=== PATIENT | female | born 1945 | race Caucasian/White ===

== ENCOUNTER 2019-07-08 07:38 | Day surgery (SDC) | payer MEDICARE ==
[2019-07-08] MEDS ORDERED: Sodium Chloride 0.9% 1,000 ML IV SCH (08:15)
[2019-07-08] MEDS ORDERED: fentaNYL 100 MCG/2 ML SDV ONE (08:47)
[2019-07-08] MEDS ORDERED: Midazolam 1 MG/ML 2 ML SDV ONE (08:47)
[2019-07-08] MEDS ORDERED: Propofol 200 MG/20 ML SDV ONE ×2 (08:47→09:58)
[2019-07-08 11:15] VITALS: BP 107/73; PULSE 51
--- NOTE | 2019-07-08 12:22 | PROC ---
DATE OF PROCEDURE: 07/08/2019 SURGEON: David Manuel MD PREPROCEDURE DIAGNOSIS: Screening colonoscopy. POSTPROCEDURE DIAGNOSIS: Screening colonoscopy, normal colon. INDICATION: Risks and goals of the procedure including potential complications, perforation, uncontrolled bleeding were reviewed with the patient, and she gave informed consent to proceed. She was brought back to the endoscopy room. Sedation and monitoring provided by the Anesthesia Service. She was placed in a left lateral decubitus position. Time-out was held to confirm right patient, right side, right procedure. After adequate sedation was achieved, digital rectal exam was performed which was unremarkable. Following this, the flexible colonoscope was placed and advanced out through the colon to the cecum. The scope was slowly withdrawn through the length of the colon out of the cecum through the ascending, transverse colon, down the descending colon, and through the sigmoid colon. The scope was then retroflexed in the rectum, straightened, and removed. There were no significant mucosal polyps, masses, or lesions noted, and the procedure was otherwise completed without complication. David Manuel MD /[id number]
== END 2019-07-08 11:16 | disposition home or self-care (01) ==
LOC: JP.SDS 07:38
PROVIDERS: ATTEND Hospitalist
DX: Z12.11 Encounter for screening for malignant neoplasm of colon (principal); E78.5 Hyperlipidemia, unspecified
CPT/HCPCS: G0121; J2250; J2704; J3010; J7030

== ENCOUNTER 2019-11-26 14:18 | Inpatient (IN) | payer MEDICARE ==
--- NOTE | 2019-11-26 15:08 | EDM.PDOC ---
ED HPI GENERAL MEDICAL PROBLEM - General Chief Complaint: Lower Extremity Injury/Pain Stated Complaint: Fall. BL knees and R foot/ankle pain Time Seen by Provider: 11/26/19 15:00 Source of Information: Reports: Patient, Family History Limitations: Reports: No Limitations - History of Present Illness INITIAL COMMENTS - FREE TEXT/NARRATIVE: CC: Fell at home getting the mail. Pt arrives private vehicle to ER after unwitnessed fall about 1200 pm. Pt fell to both knees and twisted R foot/ankle. No LOC. Pt states "did not bear weight and slid down to ground near garage to wait for to return from run. slid pt to vehicle and drove to ER. Onset: Today Onset Date: 11/26/19 Onset Time: 12:00 Duration: Hour(s):, Constant Location: Reports: Lower Extremity, Left, Lower Extremity, Right, Other (BL knees and R foot/ankle) Quality: Reports: Ache, Pressure Severity: Moderate Improves with: Reports: Immobilization, Other (Has not taken anything ) Worsens with: Reports: Movement Context: Reports: Other (fall at home) Associated Symptoms: Reports: Weakness (BL knees and L foot/ankle) Right Knee Pain Score (Numeric/FACES): 10 - Related Data Allergies Allergy/AdvReac Type Severity Reaction Status Date / Time No Known Allergies Allergy Verified 11/26/19 14:43 Home Meds: Home Meds Calcium Carbonate [Calcium] 500 tab PO TID 05/05/15 [History] Multivitamin [Multivitamins] 1 tab PO DAILY 05/05/15 [History] Aspirin [Low Dose Aspirin EC] 81 mg PO DAILY 05/17/18 [History] atorvaSTATin Calcium [Lipitor] 20 mg PO BEDTIME 05/17/18 [History] Past Medical History HEENT History: Reports: Cataract, Impaired Vision Cardiovascular History: Reports: High Cholesterol 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: Musculoskeletal History: Reports: Fracture Other Musculoskeletal History: hx of bilateral hip replacement, left foot drop with complication of surgery Neurological History: Reports: CVA Endocrine/Metabolic History: Reports: Obesity/BMI 30+ - Infectious Disease History Infectious Disease History: Reports: Chicken Pox, Measles, Mumps - Past Surgical History HEENT Surgical History: Reports: Cataract Surgery Cardiovascular Surgical History: Reports: None Musculoskeletal Surgical History: Reports: Hip Replacement, Other (See Below) Other Musculoskeletal Surgeries/Procedures:: surg on left wrist with plate Social & Family History - Tobacco Use Smoking Status *Q: Never Smoker Second Hand Smoke Exposure: No - Caffeine Use Caffeine Use: Reports: Coffee - Recreational Drug Use Recreational Drug Use: No - Living Situation & Occupation Living situation: Reports: , with Spouse (lives with near [place], [place]. 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 no children) Occupation: Retired Review of Systems - Review of Systems Review Of Systems: See Below Constitutional: Reports: Weakness (BL knees and R foot/ankle) Eyes: Reports: No Symptoms Ears: Reports: No Symptoms Nose: Reports: No Symptoms Mouth/Throat: Reports: No Symptoms Respiratory: Reports: No Symptoms Cardiovascular: Reports: No Symptoms GI/Abdominal: Reports: No Symptoms Genitourinary: Reports: No Symptoms Musculoskeletal: Reports: Leg Pain, Foot Pain, Joint Pain, Joint Swelling, Other (BL hips replaced and L foot drop ) Skin: Reports: Bruising, Erythema, Other (Abrasions to BL knees and inside R ankle from fall) Neurological: Reports: No Symptoms, Pre-Existing Deficit (left foot drop), Other (short term memory loss from CVA 3 years ago.) Psychiatric: Reports: No Symptoms ED EXAM, GENERAL - Physical Exam Exam: See Below Exam Limited By: No Limitations General Appearance: Alert, WD/WN, No Apparent Distress Ears: Normal External Exam Nose: Normal Inspection Throat/Mouth: Normal Inspection Head: Atraumatic, Normocephalic Neck: Normal Inspection, Supple, Non-Tender, Full Range of Motion Respiratory/Chest: No Respiratory Distress, Lungs Clear, Normal Breath Sounds Cardiovascular: Normal Peripheral Pulses, Regular Rate, Rhythm, No Edema, No Gallop, No JVD, No Murmur, No Rub Peripheral Pulses: 2+: Dorsalis Pedis (L), Dorsalis Pedis (R) GI/Abdominal: Normal Bowel Sounds, Soft, Non-Tender, No Distention, Pelvis Stable (Female) Exam: Deferred Rectal (Female) Exam: Deferred Back Exam: Normal Inspection, Full Range of Motion Extremities: Pedal Edema, Joint Swelling, Leg Pain, Limited Range of Motion, Other (BL hip replacements and L foot drop history from L hip surgery) Neurological: Alert, Oriented, CN II-XII Intact, Normal Cognition Psychiatric: Normal Affect, Normal Mood Skin Exam: Warm, Dry, No Rash, Cool, Wound/Incision, Other (BL abrasions to knees and inside R ankle from fall) Lymphatic: No Adenopathy ED TRAUMA EXTREMITY PROCEDURES - Splinting Left Lower Extremity Pre-Procedure NV Status: Normal Post-Procedure NV Status: Normal Splint Material: Fiberglass, Other (knne immobilizer) Splint Design: Knee Immobilizer Applied & Form Fitted By: Provider, Other (Student) Provider Post-Splint Application NV Check: NV Status Normal, Good Position Complications: No (Splint apply by ER Medical Doctor) Course - Vital Signs Text/Narrative:: Pt here from fall at home while getting the mail. Did not have loss of consciousness. Fell to both knees and felt her R ankle/foot was injured from fall. Pt has hx of BL hip replacements. Will order xrays. Pt denies pain unless movement Review of xray studies reveal R patellar subluxation. Knee brace and crutches pending referral to ortho. Ankle XR ordered to r/o ankle fracture. Education provided to pt and spouse on medications, crutches, brace, ice, and safety. Ankle xr indicates a fracture and dislocation. Will admit to floor. Orthoglass splint applied. Radha wrap. Knee immobilizer to R leg Last Recorded V/S: Last Vital Signs Temp 36.5 C 11/26/19 20:59 Pulse 59 L 11/26/19 20:59 Resp 16 11/26/19 20:59 BP 147/71 H 11/26/19 20:59 Pulse Ox 97 11/26/19 20:59 - Orders/Labs/Meds Orders: Active Orders 24 hr Category Date Time Status Immobilizer [RC] ASDIRECTED Care 11/26/19 16:05 Active Orthopedic Treatments [RC] ASDIRECTED Care 11/26/19 16:14 Active Vaccines to be Administered [RC] PER UNIT ROUTINE Care 11/26/19 19:22 Active Ankle Min 3V Rt [CR] Stat Exams 11/26/19 16:45 Taken Foot Comp Min 3V Rt [CR] Stat Exams 11/26/19 15:15 Taken Knee 3V Bi [CR] Stat Exams 11/26/19 15:11 Taken Medication Orders Acetaminophen (Tylenol) 650 mg PO Q4H PRN PRN Reason: Pain (Mild 1-3)/fever Atorvastatin Calcium (Lipitor) 20 mg PO BEDTIME REGGIE Last Admin: 11/26/19 21:41 Dose: 20 mg Documented by: EMILIA Bisacodyl (Dulcolax) 5 mg PO DAILY PRN PRN Reason: Constipation Docusate Sodium (Colace) 100 mg PO BID PRN PRN Reason: Constipation Last Admin: 11/26/19 21:41 Dose: 100 mg Documented by: EMILIA Sodium Chloride (Normal Saline) 1,000 mls @ 125 mls/hr IV ASDIRECTED REGGIE Lorazepam (Ativan) 1 mg IV Q6H PRN PRN Reason: Nausea/Vomiting Melatonin (Melatonin) 6 mg PO BEDTIME REGGIE Morphine Sulfate (Morphine) 2 mg IVPUSH Q2H PRN PRN Reason: Pain (severe 7-10) Ondansetron HCl (Zofran Odt) 4 mg PO Q6H PRN PRN Reason: Nausea able to take PO Ondansetron HCl (Zofran) 4 mg IV Q4H PRN PRN Reason: Nausea/Vomiting Oxycodone HCl (Oxycodone) 10 mg PO Q4H PRN PRN Reason: Pain (moderate 4-6) Pantoprazole Sodium (Protonix Iv) 40 mg IV DAILY [facility] Meds: Medications Generic Name Dose Route Start Last Admin Trade Name Freq PRN Reason Stop Dose Admin Acetaminophen 650 mg 11/26/19 20:20 Tylenol PO Q4H PRN Pain (Mild 1-3)/fever Atorvastatin Calcium 20 mg 11/26/19 21:00 11/26/19 21:41 Lipitor PO 20 mg BEDTIME REGGIE Administration Bisacodyl 5 mg 11/26/19 20:20 Dulcolax PO DAILY PRN Constipation Docusate Sodium 100 mg 11/26/19 20:20 11/26/19 21:41 Colace PO 100 mg BID PRN Administration Constipation Sodium Chloride 1,000 mls @ 125 mls/hr 11/26/19 20:20 Normal Saline IV ASDIRECTED REGGIE Lorazepam 1 mg 11/26/19 20:20 Ativan IV Q6H PRN Nausea/Vomiting Melatonin 6 mg 11/26/19 21:00 Melatonin PO BEDTIME REGGIE Morphine Sulfate 2 mg 11/26/19 20:20 Morphine IVPUSH Q2H PRN Pain (severe 7-10) Ondansetron HCl 4 mg 11/26/19 20:20 Zofran Odt PO Q6H PRN Nausea able to take PO Ondansetron HCl 4 mg 11/26/19 20:20 Zofran IV Q4H PRN Nausea/Vomiting Oxycodone HCl 10 mg 11/26/19 20:20 Oxycodone PO Q4H PRN Pain (moderate 4-6) Pantoprazole Sodium 40 mg 11/26/19 20:20 Protonix Iv IV DAILY REGGIE Discontinued Medications Generic Name Dose Route Start Last Admin Trade Name Freq PRN Reason Stop Dose Admin Diphtheria/Tetanus/Acell Pertussis 0.5 ml 11/26/19 19:22 11/26/19 21:44 Adacel IM 11/26/19 19:23 0.5 ml .ONCE ONE Administration - Re-Assessments/Exams Free Text/Narrative Re-Assessment/Exam: 11/26/19 22:01 BL knee XR and foot/ankle XR reviewd by ER doctor and student [employer]. Dr Schultz Orthopedic surgeon was contacted and reviewed imaging. Dr Schultz advised to admit pt with planned surgery in am. Reviewed plan of care with Mr and Mrs Nielson and agree with plan of care Hospitalist was called with pending admit and will admit to hospital Departure - Departure Time of Disposition: 16:18 Disposition: Admitted As Inpatient 67 Condition: Good Clinical Impression: Fracture of patella, Closed fracture of ankle - Discharge Information *PRESCRIPTION DRUG MONITORING PROGRAM REVIEWED*: Not Applicable *COPY OF PRESCRIPTION DRUG MONITORING REPORT IN PATIENT RUPESH: Not Applicable Sepsis Event Note (ED) - Evaluation Sepsis Screening Result: No Definite Risk - Focused Exam Vital Signs: Vital Signs Temp Pulse Resp BP Pulse Ox 11/26/19 15:12 61 16 153/82 H 100 11/26/19 14:53 36.7 C 65 16 165/83 H 100 11/26/19 14:32 36.7 C 65 16 165/83 H 100 - Problem List & Annotations (1) Fracture of radius, distal, left, closed SNOMED Code(s): 20625597 Code(s): S52.502A - UNSP FRACTURE OF THE LOWER END OF LEFT RADIUS, INIT Status: Acute Priority: High Current Visit: Yes Qualifiers: Encounter type: initial encounter Fracture morphology: other fracture Qualified Code(s): S52.592A - Other fractures of lower end of left radius, initial encounter for closed fracture (2) Fracture of patella SNOMED Code(s): 12879851 Code(s): S82.009A - UNSP FRACTURE OF UNSP PATELLA, INIT FOR CLOS FX Status: Acute Priority: High Current Visit: Yes (3) Closed fracture of ankle SNOMED Code(s): 44249269 Code(s): S82.899A - OTH FRACTURE OF UNSP LOWER LEG, INIT FOR CLOS FX Status: Acute Priority: High Current Visit: Yes - Problem List Review Problem List Initiated/Reviewed/Updated: Yes - My Orders Last 24 Hours: My Active Orders 11/26/19 15:11 Knee 3V Bi [CR] Stat 11/26/19 15:15 Foot Comp Min 3V Rt [CR] Stat 11/26/19 16:05 Immobilizer [RC] ASDIRECTED 11/26/19 16:14 Orthopedic Treatments [RC] ASDIRECTED - Assessment/Plan Last 24 Hours: My Active Orders 11/26/19 15:11 Knee 3V Bi [CR] Stat 11/26/19 15:15 Foot Comp Min 3V Rt [CR] Stat 11/26/19 16:05 Immobilizer [RC] ASDIRECTED 11/26/19 16:14 Orthopedic Treatments [RC] ASDIRECTED Plan: Pt admitted to hospital for further care and treatment
[2019-11-26] MEDS ORDERED: Diphtheria,Pertussis(Acell),Tetanus Vaccine 0.5 ML SDV IM ONE (19:22)
[2019-11-26] MEDS ORDERED: Ondansetron 4 MG/2 ML SDV IV PRN (20:20)
[2019-11-26] MEDS ORDERED: Bisacodyl 5 MG Tab PO PRN (20:20)
[2019-11-26] MEDS ORDERED: Ondansetron 4 MG Tab.DIS PO PRN (20:20)
[2019-11-26] MEDS ORDERED: Morphine 2 MG/ML Syringe IVPUSH PRN (20:20)
[2019-11-26] MEDS ORDERED: Pantoprazole 40 MG Vial IV SCH (20:20)
[2019-11-26] MEDS ORDERED: LORazepam 2 MG/ML SDV IV PRN (20:20)
[2019-11-26] MEDS: Docusate Sodium 100 MG Cap PO PRN (21:41)
[2019-11-26] MEDS: atorvaSTATin 20 MG Tab PO SCH (21:41)
[2019-11-26] MEDS: Sodium Chloride 0.9% 1,000 ML IV SCH (22:19)
--- NOTE | 2019-11-27 00:15 | PCM.HP.2 ---
H&P History of Present Illness - General Date of Service: 11/26/19 Admit Problem/Dx: Admission Diagnosis/Problem Admission Diagnosis/Problem Ankle fracture Source of Information: Patient, Old Records, Police History Limitations: Reports: No Limitations - History of Present Illness Initial Comments - Free Text/Narative: chief complaint: right leg pain This is a 74 year old female who was walking to mailbox to check her mail and fell. She has left foot drop and was not wearing her AFO and may of caused her fall. She was brought to ER by her . Onset of Symptoms: Reports: Today Symptom Onset Date: 11/26/19 Symptom Onset Time: 12:00 Duration of Symptoms: Reports: Hour(s): Location: Reports: Lower Extremity, Right Quality: Reports: Ache Severity: Mild Improves with: Reports: Immobilization Worsens with: Reports: Movement Context: Reports: Other (fall at home) Associated Symptoms: Reports: No Other Symptoms Right Knee Pain Score (Numeric/FACES): 10 - Related Data Allergies/Adverse Reactions: Allergies Allergy/AdvReac Type Severity Reaction Status Date / Time No Known Allergies Allergy Verified 11/26/19 14:43 Home Medications: Home Meds Calcium Carbonate [Calcium] 500 tab PO TID 05/05/15 [History] Multivitamin [Multivitamins] 1 tab PO DAILY 05/05/15 [History] Aspirin [Low Dose Aspirin EC] 81 mg PO DAILY 05/17/18 [History] atorvaSTATin Calcium [Lipitor] 20 mg PO BEDTIME 05/17/18 [History] Past Medical History HEENT History: Reports: Cataract, Impaired Vision Cardiovascular History: Reports: High Cholesterol [employer]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: Musculoskeletal History: Reports: Fracture Other Musculoskeletal History: hx of bilateral hip replacement, left foot drop with complication of surgery Neurological History: Reports: CVA Endocrine/Metabolic History: Reports: Obesity/BMI 30+ - Infectious Disease History Infectious Disease History: Reports: Chicken Pox, Measles, Mumps - Past Surgical History HEENT Surgical History: Reports: Cataract Surgery Cardiovascular Surgical History: Reports: None Musculoskeletal Surgical History: Reports: Hip Replacement, Other (See Below) Other Musculoskeletal Surgeries/Procedures:: surg on left wrist with plate Social & Family History - Family History Family Medical History: Noncontributory - Tobacco Use Smoking Status *Q: Never Smoker Second Hand Smoke Exposure: No - Caffeine Use Caffeine Use: Reports: Coffee - Recreational Drug Use Recreational Drug Use: No - Living Situation & Occupation Living situation: Reports: , with Spouse (lives with near [place], [place]. 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 no children) Occupation: Retired H&P Review of Systems - Review of Systems: Review Of Systems: See Below General: Reports: Other (right lower leg in long leg splint - denies any pain or discomfort at this time) HEENT: Reports: Glasses, Other (natural teeth) Pulmonary: Reports: No Symptoms Cardiovascular: Reports: No Symptoms Gastrointestinal: Reports: No Symptoms Genitourinary: Reports: No Symptoms Musculoskeletal: Reports: Leg Pain (fractures noted in leg), Other (left foot drop) Skin: Reports: Other (reports hands and feet are always cool/cold) Psychiatric: Reports: Other (reports memory problems since stroke 3 years ago) Neurological: Reports: Pre-Existing Deficit (memory impairment from CVA 3 years ago.) Hematologic/Lymphatic: Reports: No Symptoms Immunologic: Reports: No Symptoms Exam - Exam Exam: See Below - Vital Signs Vital Signs: Last Vital Signs Temp 36.5 C 11/26/19 20:59 Pulse 59 L 11/26/19 20:59 Resp 16 11/26/19 20:59 BP 147/71 H 11/26/19 20:59 Pulse Ox 97 11/26/19 20:59 Weight: 77.111 kg - Exam General: Alert, Oriented, Cooperative HEENT: PERRLA, Hearing Intact, Mucosa Moist & Remer, Nares Patent, Normal Nasal Septum, Posterior Pharynx Clear, Conjunctiva Clear, EOMI, EACs Clear, TMs Clear Neck: Supple, Trachea Midline, 2 Lungs: Clear to Auscultation, Normal Respiratory Effort Cardiovascular: Regular Rate, Regular Rhythm GI/Abdominal Exam: Normal Bowel Sounds, Soft, Non-Tender, No Organomegaly, No Distention, No Abnormal Bruit, No Mass, Pelvis Stable (Female) Exam: Deferred Rectal (Female) Exam: Deferred Back Exam: Normal Inspection, Full Range of Motion, NT Extremities: No Pedal Edema, Slow Capillary Refill, Other (right leg in long splint and knee immobilizer) Peripheral Pulses: 2+: Dorsalis Pedis (L), Dorsalis Pedis (R) Skin: Warm, Dry, Intact, Cool (bilateral feet cool. ) Neurological: Other (right leg in long splint) Neuro Extensive - Mental Status: Alert, Oriented x3, Normal Mood/Affect Neuro Extensive - Motor, Sensory, Reflexes: Other (left foot drop) Psychiatric: Alert, Normal Affect, Normal Mood - Patient Data Lab Results Last 24 hrs: Laboratory Results - last 24 hr 11/26/19 11/26/19 11/26/19 Range/Units 20:42 20:42 20:42 WBC 11.0 (4.5-11.0) K/uL RBC 4.18 (3.30-5.50) M/uL Hgb 13.3 (12.0-15.0) g/dL Hct 40.8 (36.0-48.0) % MCV 98 (80-98) fL MCH 32 H (27-31) pg MCHC 33 (32-36) % Plt Count 206 (150-400) K/uL Neut % (Auto) 73 H (36-66) % Lymph % (Auto) 19 L (24-44) % Jackson % (Auto) 8 H (2-6) % Eos % (Auto) 0 L (2-4) % Baso % (Auto) 0 (0-1) % PT 11.4 (9.5-12.0) sec INR 1.06 (0.80-1.20) Sodium 143 (140-148) mmol/L Potassium 3.8 (3.6-5.2) mmol/L Chloride 109 H (100-108) mmol/L Carbon Dioxide 24 (21-32) mmol/L Anion Gap 13.8 (5.0-14.0) mmol/L BUN 12 (7-18) mg/dL Creatinine 0.7 (0.6-1.0) mg/dL Est Cr Clr Drug Dosing 62.26 mL/min Estimated GFR (MDRD) > 60 (>60) Glucose 112 H (74-106) mg/dL Calcium 8.6 (8.5-10.1) mg/dL Magnesium 1.9 (1.8-2.4) mg/dL Total Bilirubin 0.9 (0.2-1.0) mg/dL AST 26 (15-37) U/L ALT 33 (12-78) U/L Alkaline Phosphatase 56 (46-116) U/L Total Protein 6.4 (6.4-8.2) g/dL Albumin 3.6 (3.4-5.0) g/dL Globulin 2.8 (2.3-3.5) g/dL Albumin/Globulin Ratio 1.3 (1.2-2.2) Urine Color (YELLOW) Urine Appearance (CLEAR) Urine pH (5.0-8.0) Ur Specific Ogden (1.008-1.030) Urine Protein (NEGATIVE) mg/dL Urine Glucose (UA) (NEGATIVE) mg/dL Urine Ketones (NEGATIVE) mg/dL Urine Occult Blood (NEGATIVE) Urine Nitrite (NEGATIVE) Urine Bilirubin (NEGATIVE) Urine Urobilinogen (0.2-1.0) EU/dL Ur Leukocyte Esterase (NEGATIVE) Urine RBC (0-5) Urine WBC (0-5) Ur Epithelial Cells Amorphous Sediment Urine Bacteria Urine Mucus 11/26/19 Range/Units 23:38 WBC (4.5-11.0) K/uL RBC (3.30-5.50) M/uL Hgb (12.0-15.0) g/dL Hct (36.0-48.0) % MCV (80-98) fL MCH (27-31) pg MCHC (32-36) % Plt Count (150-400) K/uL Neut % (Auto) (36-66) % Lymph % (Auto) (24-44) % Jackson % (Auto) (2-6) % Eos % (Auto) (2-4) % Baso % (Auto) (0-1) % PT (9.5-12.0) sec INR (0.80-1.20) Sodium (140-148) mmol/L Potassium (3.6-5.2) mmol/L Chloride (100-108) mmol/L Carbon Dioxide (21-32) mmol/L Anion Gap (5.0-14.0) mmol/L BUN (7-18) mg/dL Creatinine (0.6-1.0) mg/dL Est Cr Clr Drug Dosing mL/min Estimated GFR (MDRD) (>60) Glucose (74-106) mg/dL Calcium (8.5-10.1) mg/dL Magnesium (1.8-2.4) mg/dL Total Bilirubin (0.2-1.0) mg/dL AST (15-37) U/L ALT (12-78) U/L Alkaline Phosphatase (46-116) U/L Total Protein (6.4-8.2) g/dL Albumin (3.4-5.0) g/dL Globulin (2.3-3.5) g/dL Albumin/Globulin Ratio (1.2-2.2) Urine Color Yellow (YELLOW) Urine Appearance Clear (CLEAR) Urine pH 6.0 (5.0-8.0) Ur Specific Ogden 1.020 (1.008-1.030) Urine Protein Negative (NEGATIVE) mg/dL Urine Glucose (UA) Negative (NEGATIVE) mg/dL Urine Ketones Negative (NEGATIVE) mg/dL Urine Occult Blood Negative (NEGATIVE) Urine Nitrite Negative (NEGATIVE) Urine Bilirubin Negative (NEGATIVE) Urine Urobilinogen 0.2 (0.2-1.0) EU/dL Ur Leukocyte Esterase Trace H (NEGATIVE) Urine RBC 0-5 (0-5) Urine WBC 0-5 (0-5) Ur Epithelial Cells Few Amorphous Sediment Rare Urine Bacteria Not seen Urine Mucus Not seen Result Diagrams: 11/26/19 20:42 11/26/19 20:42 Sepsis Event Note - Evaluation Sepsis Screening Result: No Definite Risk - Focused Exam Vital Signs: Vital Signs Temp Pulse Resp BP Pulse Ox 11/26/19 20:59 36.5 C 59 L 16 147/71 H 97 11/26/19 20:20 97 11/26/19 15:12 61 16 153/82 H 100 11/26/19 14:53 36.7 C 65 16 165/83 H 100 11/26/19 14:32 36.7 C 65 16 165/83 H 100 Date Exam was Performed: 11/27/19 Time Exam was Performed: 09:22 - Problem List (1) Fracture of patella SNOMED Code(s): 21669706 ICD Code: S82.009A - UNSP FRACTURE OF UNSP PATELLA, INIT FOR CLOS FX Status: Acute Priority: High Current Visit: Yes (2) History of stroke SNOMED Code(s): 217429825 ICD Code: Z86.73 - PRSNL HX OF TIA (TIA), AND CEREB INFRC W/O RESID DEFICITS Status: Chronic Current Visit: No (3) Closed fracture of ankle SNOMED Code(s): 03777382 ICD Code: S82.899A - OTH FRACTURE OF UNSP LOWER LEG, INIT FOR CLOS FX St atus: Acute Priority: High Current Visit: Yes Problem List Initiated/Reviewed/Updated: Yes Orders Last 24hrs: Active Orders 24 hr Category Date Time Status Bedrest Bedside Commode [RC] ASDIRECTED Care 11/26/19 20:20 Active Cardiac Monitoring [RC] CONTINUOUS Care 11/26/19 20:20 Active Immobilizer [RC] ASDIRECTED Care 11/26/19 16:05 Active Intake and Output [RC] QSHIFT Care 11/26/19 20:20 Active Notify Provider Consults [RC] ASDIRECTED Care 11/26/19 20:20 Active Notify Provider Vital Signs [RC] ASDIRECTED Care 11/26/19 20:20 Active Orthopedic Treatments [RC] ASDIRECTED Care 11/26/19 16:14 Active Oxygen Therapy [RC] PRN Care 11/26/19 20:20 Active Pulse Oximetry [RC] PRN Care 11/26/19 20:20 Active VTE/DVT Education [RC] Per Unit Routine Care 11/26/19 20:20 Active Vital Signs [RC] Q4H Care 11/26/19 20:20 Active Consult to Physician [CONS] Routine Cons 11/26/19 20:20 Ordered OT Evaluation and Treatment [CONS] Routine Cons 11/26/19 20:20 Active PT Evaluation and Treatment [CONS] Routine Cons 11/26/19 20:20 Active Nothing per Oral After Midnight Diet [DIET] Diet 11/26/19 Breakfast Active Regular Diet [DIET] Diet 11/26/19 Dinner Active Ankle Min 3V Rt [CR] Stat Exams 11/26/19 16:45 Taken Foot Comp Min 3V Rt [CR] Stat Exams 11/26/19 15:15 Taken Knee 3V Bi [CR] Stat Exams 11/26/19 15:11 Taken Acetaminophen [Tylenol] Med 11/26/19 20:20 Active 650 mg PO Q4H PRN Docusate Sodium [Colace] Med 11/26/19 20:20 Active 100 mg PO BID PRN LORazepam [Ativan] Med 11/26/19 20:20 Active 1 mg IV Q6H PRN Melatonin Med 11/26/19 21:00 Active 6 mg PO BEDTIME Morphine Sulfate [Morphine] Med 11/26/19 20:20 Active 2 mg IVPUSH Q2H PRN Ondansetron [Zofran ODT] Med 11/26/19 20:20 Active 4 mg PO Q6H PRN Ondansetron [Zofran] Med 11/26/19 20:20 Active 4 mg IV Q4H PRN Pantoprazole [ProTONIX IV] Med 11/26/19 20:20 Active 40 mg IV DAILY Sodium Chloride 0.9% [Normal Saline] 1,000 ml Med 11/26/19 20:20 Active IV ASDIRECTED atorvaSTATin [Lipitor] Med 11/26/19 21:00 Active 20 mg PO BEDTIME bisacodyL [Dulcolax] Med 11/26/19 20:20 Active 5 mg PO DAILY PRN oxyCODONE Med 11/26/19 20:20 Active 10 mg PO Q4H PRN Sequential Compression Device [OM.PC] Per Unit Routine Oth 11/26/19 20:20 Ordered Resuscitation Status Routine Resus Stat 11/26/19 19:31 Ordered Medication Orders Acetaminophen (Tylenol) 650 mg PO Q4H PRN PRN Reason: Pain (Mild 1-3)/fever Atorvastatin Calcium (Lipitor) 20 mg PO BEDTIME [facility] Last Admin: 11/26/19 21:41 Dose: 20 mg Documented by: EMILIA Bisacodyl (Dulcolax) 5 mg PO DAILY PRN PRN Reason: Constipation Docusate Sodium (Colace) 100 mg PO BID PRN PRN Reason: Constipation Last Admin: 11/26/19 21:41 Dose: 100 mg Documented by: EMILIA Sodium Chloride (Normal Saline) 1,000 mls @ 125 mls/hr IV ASDIRECTED [facility] Last Admin: 11/26/19 22:19 Dose: 125 mls/hr Documented by: EMILIA Lorazepam (Ativan) 1 mg IV Q6H PRN PRN Reason: Nausea/Vomiting Melatonin (Melatonin) 6 mg PO BEDTIME [facility] Morphine Sulfate (Morphine) 2 mg IVPUSH Q2H PRN PRN Reason: Pain (severe 7-10) Ondansetron HCl (Zofran Odt) 4 mg PO Q6H PRN PRN Reason: Nausea able to take PO Ondansetron HCl (Zofran) 4 mg IV Q4H PRN PRN Reason: Nausea/Vomiting Oxycodone HCl (Oxycodone) 10 mg PO Q4H PRN PRN Reason: Pain (moderate 4-6) Pantoprazole Sodium (Protonix Iv) 40 mg IV DAILY [facility] Last Admin: 11/26/19 22:20 Dose: 40 mg Documented by: [id number] Assessment/Plan Comment:: ASSESSMENT AND PLAN - fall at home - fracture right ankle and right patella This is a 74 year old female who walked to [employer] to check mail and fell. was able to assist her to the car and she was brought to the ER for evaluation. She reports she is very active and walks 5 miles a day, but today she did not put on her AFO for her left foot drop and this contributed to her fall. She reports no other injury. ER Course- Imaging shows fractures of right patella and right ankle with dislocation. Consult to Orthopedics with planned surgery in am. Splint and knee immobilizer applied in ER before admission to hospital. FRACTURE RIGHT PATELLA AND RIGHT ANKLE WITH DISLOCATION - admit to ICU Med-Surg. overflow - Consult Dr. Schultz - will have planned surgery in am. - IV fluids - Normal Saline 125m//hr - NPO after midnight. - Pain control - consult Physical therapy - consult OT - labs CBC, CMP, INR, UA History of CVA - reports memory impairment. -short term memory loss -left foot drop- has AFO- doesn't always wear AFO -fall risk Maintenance issues - - DVT prophylaxis - SCD surgery planned in am. - GI prophylaxis -PPI Protonix 40 mg daily - Nutrition -regular diet then NPO after midnight -sleep- Melatonin 6 mg at bedtime - Martinez catheter -not indicated CODE STATUS -full code Admission justification -this patient will be admitted for inpatient services and is medically appropriate meeting medical necessity for inpatient admission as outlined in my documentation. I reasonably expect the patient will require inpatient services that span a period time over 2 midnights. I reasonably expect this patient to be discharged or transferred within 96 hours [facility]. Disposition -anticipate discharge home with Spouse Primary care physician -Dr. Collado Hospitalist- Dr. Kaleb M.D. - Mortality Measure Prognosis:: Good - Mortality Measure Prognosis:: Good
[2019-11-27] MEDS: Melatonin 3 MG Tab PO SCH ×2 (00:56→21:06)
[2019-11-27] MEDS: Sodium Chloride 0.9% 1,000 ML IV SCH ×2 (06:17→16:27)
--- NOTE | 2019-11-27 08:52 | CR ---
Knee 3V Bi CLINICAL HISTORY: Trauma FINDING: Right knee: There is a comminuted fracture of the patella with the significant displacement of the portal step-off in the lateral tibial plateau which is likely an fraction fracture. Left knee: There is joint space narrowing and periarticular patellar spurring. There is prominence intercondylar eminence. No fracture seen on the 2 view study. IMPRESSION: Comminuted displaced patellar fracture right knee Lateral tibial plateau fracture right knee Severe bilateral osteoarthritis
--- NOTE | 2019-11-27 08:55 | CR ---
FOOT RIGHT 3 views CLINICAL HISTORY:Fall FINDINGS:Patient has severe osteoarthritic change at the first MTP joint with significant hallux valgus. There are mild hammertoe deformities. There is fracture dislocation at the ankle IMPRESSION: Severe first MTP osteoarthritis and hallux valgus Hammertoe deformities , Ankle Min 3V Rt CLINICAL HISTORY: Fall FINDINGS: The soft tissues are moderately swollen. There is a fracture of the distal fibula with moderate displacement. There is lateral subluxation of the talus. IMPRESSION: Displaced distal fibular fracture Moderate lateral subluxation of the talus
[2019-11-27] MEDS ORDERED: Bupivacaine 0.5% 30 ML SDV ONE (09:24)
[2019-11-27] MEDS ORDERED: Propofol 200 MG/20 ML SDV ONE ×2 (09:25→11:26)
[2019-11-27] MEDS ORDERED: Midazolam 1 MG/ML 2 ML SDV ONE (09:25)
[2019-11-27] MEDS ORDERED: fentaNYL 100 MCG/2 ML SDV ONE (09:25)
[2019-11-27] MEDS ORDERED: Lactated Ringers 500 ML IV ONE (09:45)
[2019-11-27] MEDS ORDERED: ceFAZolin 2 GM in Premix Bag 1 BAG IV ONE (10:00)
--- NOTE | 2019-11-27 10:27 | PCM.PN ---
- General Info Date of Service: 11/27/19 Subjective Update: Ms. Nielson is a 74-year-old woman who was admitted through the emergency department last night. She fell at home and experience severe pain in her right knee and ankle. X-rays documented a patellar fracture as well as a ankle fracture and dislocation. She has been seen this morning by Dr. Schultz with the plan for surgery this morning. Functional Status: Reports: Pain Controlled - Review of Systems General: Reports: No Symptoms Pulmonary: Reports: No Symptoms Cardiovascular: Reports: No Symptoms Gastrointestinal: Reports: No Symptoms Musculoskeletal: Reports: Other (Right ankle and knee pain) - Patient Data Vitals - Most Recent: Last Vital Signs Temp 98.6 F 11/27/19 08:28 Pulse 67 11/27/19 08:28 Resp 16 11/27/19 08:28 BP 119/70 11/27/19 08:28 Pulse Ox 98 11/27/19 08:28 Weight - Most Recent: 170 lb 0.01 oz I&O - Last 24 Hours: Intake & Output 11/26/19 11/27/19 11/27/19 22:59 06:59 14:59 Intake Total 480 815 Output Total 600 Balance 480 215 Lab Results Last 24 Hours: Laboratory Results - last 24 hr 11/26/19 11/26/19 11/26/19 Range/Units 20:42 20:42 20:42 WBC 11.0 (4.5-11.0) K/uL RBC 4.18 (3.30-5.50) M/uL Hgb 13.3 (12.0-15.0) g/dL Hct 40.8 (36.0-48.0) % MCV 98 (80-98) fL MCH 32 H (27-31) pg MCHC 33 (32-36) % Plt Count 206 (150-400) K/uL Neut % (Auto) 73 H (36-66) % Lymph % (Auto) 19 L (24-44) % Dyer % (Auto) 8 H (2-6) % Eos % (Auto) 0 L (2-4) % Baso % (Auto) 0 (0-1) % PT 11.4 (9.5-12.0) sec INR 1.06 (0.80-1.20) Sodium 143 (140-148) mmol/L Potassium 3.8 (3.6-5.2) mmol/L Chloride 109 H (100-108) mmol/L Carbon Dioxide 24 (21-32) mmol/L Anion Gap 13.8 (5.0-14.0) mmol/L BUN 12 (7-18) mg/dL Creatinine 0.7 (0.6-1.0) mg/dL Est Cr Clr Drug Dosing 62.26 mL/min Estimated GFR (MDRD) > 60 (>60) Glucose 112 H (74-106) mg/dL Calcium 8.6 (8.5-10.1) mg/dL Magnesium 1.9 (1.8-2.4) mg/dL Total Bilirubin 0.9 (0.2-1.0) mg/dL AST 26 (15-37) U/L ALT 33 (12-78) U/L Alkaline Phosphatase 56 (46-116) U/L Total Protein 6.4 (6.4-8.2) g/dL Albumin 3.6 (3.4-5.0) g/dL Globulin 2.8 (2.3-3.5) g/dL Albumin/Globulin Ratio 1.3 (1.2-2.2) Urine Color (YELLOW) Urine Appearance (CLEAR) Urine pH (5.0-8.0) Ur Specific Percy (1.008-1.030) Urine Protein (NEGATIVE) mg/dL Urine Glucose (UA) (NEGATIVE) mg/dL Urine Ketones (NEGATIVE) mg/dL Urine Occult Blood (NEGATIVE) Urine Nitrite (NEGATIVE) Urine Bilirubin (NEGATIVE) Urine Urobilinogen (0.2-1.0) EU/dL Ur Leukocyte Esterase (NEGATIVE) Urine RBC (0-5) Urine WBC (0-5) Ur Epithelial Cells Amorphous Sediment Urine Bacteria Urine Mucus 11/26/19 Range/Units 23:38 WBC (4.5-11.0) K/uL RBC (3.30-5.50) M/uL Hgb (12.0-15.0) g/dL Hct (36.0-48.0) % MCV (80-98) fL MCH (27-31) pg MCHC (32-36) % Plt Count (150-400) K/uL Neut % (Auto) (36-66) % Lymph % (Auto) (24-44) % Dyer % (Auto) (2-6) % Eos % (Auto) (2-4) % Baso % (Auto) (0-1) % PT (9.5-12.0) sec INR (0.80-1.20) Sodium (140-148) mmol/L Potassium (3.6-5.2) mmol/L Chloride (100-108) mmol/L Carbon Dioxide (21-32) mmol/L Anion Gap (5.0-14.0) mmol/L BUN (7-18) mg/dL Creatinine (0.6-1.0) mg/dL Est Cr Clr Drug Dosing mL/min Estimated GFR (MDRD) (>60) Glucose (74-106) mg/dL Calcium (8.5-10.1) mg/dL Magnesium (1.8-2.4) mg/dL Total Bilirubin (0.2-1.0) mg/dL AST (15-37) U/L ALT (12-78) U/L Alkaline Phosphatase (46-116) U/L Total Protein (6.4-8.2) g/dL Albumin (3.4-5.0) g/dL Globulin (2.3-3.5) g/dL Albumin/Globulin Ratio (1.2-2.2) Urine Color Yellow (YELLOW) Urine Appearance Clear (CLEAR) Urine pH 6.0 (5.0-8.0) Ur Specific Percy 1.020 (1.008-1.030) Urine Protein Negative (NEGATIVE) mg/dL Urine Glucose (UA) Negative (NEGATIVE) mg/dL Urine Ketones Negative (NEGATIVE) mg/dL Urine Occult Blood Negative (NEGATIVE) Urine Nitrite Negative (NEGATIVE) Urine Bilirubin Negative (NEGATIVE) Urine Urobilinogen 0.2 (0.2-1.0) EU/dL Ur Leukocyte Esterase Trace H (NEGATIVE) Urine RBC 0-5 (0-5) Urine WBC 0-5 (0-5) Ur Epithelial Cells Few Amorphous Sediment Rare Urine Bacteria Not seen Urine Mucus Not seen Med Orders - Current: Current Medications Acetaminophen (Tylenol) 650 mg PO Q4H PRN PRN Reason: Pain (Mild 1-3)/fever Atorvastatin Calcium (Lipitor) 20 mg PO BEDTIME [facility] Last Admin: 11/26/19 21:41 Dose: 20 mg Documented by: Bisacodyl (Dulcolax) 5 mg PO DAILY PRN PRN Reason: Constipation Docusate Sodium (Colace) 100 mg PO BID PRN PRN Reason: Constipation Last Admin: 11/26/19 21:41 Dose: 100 mg Documented by: Sodium Chloride (Normal Saline) 1,000 mls @ 125 mls/hr IV ASDIRECTED [facility] Last Admin: 11/27/19 06:17 Dose: 125 mls/hr Documented by: Cefazolin Sodium/Dextrose 2 gm (/ Premix) 50 mls @ 100 mls/hr IV ONETIME ONE Stop: 11/27/19 10:29 Last Admin: 11/27/19 10:20 Dose: 100 mls/hr Documented by: Lorazepam (Ativan) 1 mg IV Q6H PRN PRN Reason: Nausea/Vomiting Melatonin (Melatonin) 6 mg PO BEDTIME [facility] Last Admin: 11/27/19 00:56 Dose: Not Given Documented by: Morphine Sulfate (Morphine) 2 mg IVPUSH Q2H PRN PRN Reason: Pain (severe 7-10) Ondansetron HCl (Zofran Odt) 4 mg PO Q6H PRN PRN Reason: Nausea able to take PO Ondansetron HCl (Zofran) 4 mg IV Q4H PRN PRN Reason: Nausea/Vomiting Oxycodone HCl (Oxycodone) 10 mg PO Q4H PRN PRN Reason: Pain (moderate 4-6) Pantoprazole Sodium (Protonix Iv) 40 mg IV BEDTIME [facility] Discontinued Medications Bupivacaine HCl (Marcaine 0.5%) Confirm Administered Dose 30 ml .ROUTE .STK-MED ONE Stop: 11/27/19 09:25 Diphtheria/Tetanus/Acell Pertussis (Adacel) 0.5 ml IM .ONCE ONE Stop: 11/26/19 19:23 Last Admin: 11/26/19 21:44 Dose: 0.5 ml Documented by: Fentanyl (Sublimaze) Confirm Administered Dose 100 mcg .ROUTE .STK-MED ONE Stop: 11/27/19 09:26 Lactated Ringer's (Ringers, Lactated) 500 mls @ 999 mls/hr IV .BOLUS ONE Stop: 11/27/19 10:15 Last Admin: 11/27/19 09:30 Dose: 999 mls/hr Documented by: Midazolam HCl (Versed 1 Mg/Ml) Confirm Administered Dose 2 mg .ROUTE .STK-MED ONE Stop: 11/27/19 09:26 Pantoprazole Sodium (Protonix Iv) 40 mg IV DAILY REGGIE Last Admin: 11/26/19 22:20 Dose: 40 mg Documented by: Propofol (Diprivan 20 Ml) Confirm Administered Dose 200 mg .ROUTE .STK-MED ONE Stop: 11/27/19 09:26 - Exam General: Alert, Oriented, Cooperative, Mild Distress Lungs: Clear to Auscultation, Normal Respiratory Effort Cardiovascular: Regular Rate, Regular Rhythm, No Murmurs GI/Abdominal Exam: Soft, Non-Tender, No Organomegaly, No Distention Sepsis Event Note - Evaluation Sepsis Screening Result: No Definite Risk - Focused Exam Vital Signs: Vital Signs Temp Pulse Resp BP Pulse Ox 11/27/19 08:28 98.6 F 67 16 119/70 98 11/27/19 02:50 97.7 F 69 16 130/70 95 11/27/19 01:48 95 Date Exam was Performed: 11/27/19 Time Exam was Performed: 10:24 - Problem List Review Problem List Initiated/Reviewed/Updated: Yes - Plan Plan:: ASSESSMENT AND PLAN FRACTURE RIGHT PATELLA AND RIGHT ANKLE WITH DISLOCATION -Orthopedic management per Dr. Schultz. - IV fluids - Normal Saline 125m//hr - NPO after midnight. - Pain control - consult Physical therapy - consult OT History of CVA - reports memory impairment. -short term memory loss -left foot drop- has AFO- doesn't always wear AFO -fall risk Maintenance issues - - DVT prophylaxis - SCD surgery planned in am. - GI prophylaxis -PPI Protonix 40 mg daily - Nutrition -regular diet then NPO after midnight -sleep- Melatonin 6 mg at bedtime - Martinez catheter -not indicated CODE STATUS -full code Admission justification -this patient will be admitted for inpatient services and is medically appropriate meeting medical necessity for inpatient admission as outlined in my documentation. I reasonably expect the patient will require inpatient services that span a period time over 2 midnights. I reasonably expect this patient to be discharged or transferred within 96 hours [facility]. Disposition -anticipate discharge home with Spouse Primary care physician -Dr. Collado Hospitalist- Dr. Kaleb M.D. - Mortality Measure Prognosis:: Good
[2019-11-27] MEDS ORDERED: Lactated Ringers 1,000 ML ONE (11:37)
[2019-11-27] MEDS ORDERED: oxyCODONE 5 MG Tab PO PRN (12:32)
[2019-11-27] MEDS ORDERED: Morphine 2 MG/ML Syringe IVPUSH PRN (12:34)
[2019-11-27] MEDS ORDERED: ceFAZolin 1 GM in Sodium Chloride 0.9% 50 ML IV SCH (12:45)
[2019-11-27] MEDS: Acetaminophen/HYDROcodone 325-5 MG Tab PO PRN (14:03)
[2019-11-27] MEDS: ceFAZolin 1 GM in Premix Bag 1 BAG IV SCH (17:47)
[2019-11-27] MEDS: Acetaminophen 325 MG Tab PO PRN ×2 (17:47→22:45)
[2019-11-27] MEDS: Pantoprazole 40 MG Vial IV SCH (21:05)
[2019-11-27] MEDS: Aspirin 325 MG Tab.EC PO SCH (21:06)
[2019-11-27] MEDS: atorvaSTATin 20 MG Tab PO SCH (21:06)
[2019-11-27] MEDS: Docusate Sodium 100 MG Cap PO PRN (21:09)
[2019-11-27] MEDS: oxyCODONE 5 MG Tab PO PRN (22:45)
[2019-11-28] MEDS: ceFAZolin 1 GM in Premix Bag 1 BAG IV SCH (01:27)
[2019-11-28] MEDS: Sodium Chloride 0.9% 1,000 ML IV SCH ×2 (01:28→09:29)
[2019-11-28] MEDS: oxyCODONE 5 MG Tab PO PRN (05:56)
[2019-11-28] MEDS: Acetaminophen 325 MG Tab PO PRN (05:56)
[2019-11-28] MEDS: Aspirin 325 MG Tab.EC PO SCH ×2 (08:53→22:02)
--- NOTE | 2019-11-28 10:11 | PCM.PN ---
- General Info Date of Service: 11/28/19 Subjective Update: Ms. Nielson has been stable since surgery yesterday. She reports good pain control, denies shortness of breath, chest pain, nausea or vomiting. Functional Status: Reports: Pain Controlled, Tolerating Diet - Review of Systems General: Reports: No Symptoms Pulmonary: Reports: No Symptoms Cardiovascular: Reports: No Symptoms Gastrointestinal: Reports: No Symptoms - Patient Data Vitals - Most Recent: Last Vital Signs Temp 99.3 F 11/28/19 09:03 Pulse 57 L 11/28/19 07:00 Resp 16 11/28/19 03:00 BP 97/51 L 11/28/19 07:00 Pulse Ox 96 11/28/19 07:28 Weight - Most Recent: 170 lb I&O - Last 24 Hours: Intake & Output 11/27/19 11/28/19 11/28/19 22:59 06:59 14:59 Intake Total 1720 1660 Output Total 1150 300 500 Balance 570 1360 -500 Med Orders - Current: Current Medications Acetaminophen (Tylenol) 650 mg PO Q4H PRN PRN Reason: Pain (Mild 1-3)/fever Last Admin: 11/28/19 05:56 Dose: 650 mg Documented by: Hydrocodone Bitart/Acetaminophen ([place]orn[place]ike 325-5 Mg) 2 tab PO Q4H PRN PRN Reason: Pain (mild 1-3) Last Admin: 11/27/19 14:03 Dose: 2 tab Documented by: Aspirin (Ecotrin) 325 mg PO BID [facility] Last Admin: 11/28/19 08:53 Dose: 325 mg Documented by: Atorvastatin Calcium (Lipitor) 20 mg PO BEDTIME [facility] Last Admin: 11/27/19 21:06 Dose: 20 mg Documented by: Bisacodyl (Dulcolax) 5 mg PO DAILY PRN PRN Reason: Constipation Docusate Sodium (Colace) 100 mg PO BID PRN PRN Reason: Constipation Last Admin: 11/27/19 21:09 Dose: 100 mg Documented by: Lorazepam (Ativan) 1 mg IV Q6H PRN PRN Reason: Nausea/Vomiting Melatonin (Melatonin) 6 mg PO BEDTIME [facility] Last Admin: 11/27/19 21:06 Dose: 6 mg Documented by: Morphine Sulfate (Morphine) 2 mg IVPUSH Q1H PRN PRN Reason: Breakthrough Pain Last Admin: 11/27/19 19:45 Dose: 2 mg Documented by: Ondansetron HCl (Zofran Odt) 4 mg PO Q6H PRN PRN Reason: Nausea able to take PO Ondansetron HCl (Zofran) 4 mg IV Q4H PRN PRN Reason: Nausea/Vomiting Oxycodone HCl (Oxycodone) 5 mg PO Q4H PRN PRN Reason: Pain (moderate 4-6) Last Admin: 11/27/19 17:48 Dose: 5 mg Documented by: Pantoprazole Sodium (Protonix Iv) 40 mg IV BEDTIME [facility] Last Admin: 11/27/19 21:05 Dose: 40 mg Documented by: Discontinued Medications Bupivacaine HCl (Marcaine 0.5%) Confirm Administered Dose 30 ml .ROUTE .STK-MED ONE Stop: 11/27/19 09:25 Diphtheria/Tetanus/Acell Pertussis (Adacel) 0.5 ml IM .ONCE ONE Stop: 11/26/19 19:23 Last Admin: 11/26/19 21:44 Dose: 0.5 ml Documented by: Fentanyl (Sublimaze) Confirm Administered Dose 100 mcg .ROUTE .STK-MED ONE Stop: 11/27/19 09:26 Sodium Chloride (Normal Saline) 1,000 mls @ 125 mls/hr IV ASDIRECTED [facility] Last Admin: 11/28/19 09:29 Dose: 125 mls/hr Documented by: Cefazolin Sodium/Dextrose 2 gm (/ Premix) 50 mls @ 100 mls/hr IV ONETIME ONE Stop: 11/27/19 10:29 Last Admin: 11/27/19 10:20 Dose: 100 mls/hr Documented by: Lactated Ringer's (Ringers, Lactated) 500 mls @ 999 mls/hr IV .BOLUS ONE Stop: 11/27/19 10:15 Last Admin: 11/27/19 09:30 Dose: 999 mls/hr Documented by: Lactated Ringer's (Ringers, Lactated) Confirm Administered Dose 1,000 mls @ as directed .ROUTE .STK-MED ONE Stop: 11/27/19 11:38 Cefazolin Sodium/Dextrose 1 gm (/ Premix) 50 mls @ 100 mls/hr IV Q8H [facility] Stop: 11/28/19 02:29 Last Admin: 11/28/19 01:27 Dose: 100 mls/hr Documented by: Midazolam HCl (Versed 1 Mg/Ml) Confirm Administered Dose 2 mg .ROUTE .STK-MED ONE Stop: 11/27/19 09:26 Morphine Sulfate (Morphine) 2 mg IVPUSH Q2H PRN PRN Reason: Pain (severe 7-10) Oxycodone HCl (Oxycodone) 10 mg PO Q4H PRN PRN Reason: Pain (severe 7-10) Last Admin: 11/28/19 05:56 Dose: 10 mg Documented by: Pantoprazole Sodium (Protonix Iv) 40 mg IV DAILY [facility] Last Admin: 11/26/19 22:20 Dose: 40 mg Documented by: Propofol (Diprivan 20 Ml) Confirm Administered Dose 200 mg .ROUTE .STK-MED ONE Stop: 11/27/19 09:26 Propofol (Diprivan 20 Ml) Confirm Administered Dose 200 mg .ROUTE .STK-MED ONE Stop: 11/27/19 11:27 - Exam General: Alert, Oriented, Cooperative, Mild Distress Lungs: Clear to Auscultation, Normal Respiratory Effort Cardiovascular: Regular Rate, Regular Rhythm, No Murmurs GI/Abdominal Exam: Soft, Non-Tender, No Organomegaly, No Distention Sepsis Event Note - Evaluation Sepsis Screening Result: No Definite Risk - Focused Exam Vital Signs: Vital Signs Temp Pulse Resp BP Pulse Ox 11/28/19 09:03 99.3 F 11/28/19 07:28 96 11/28/19 07:00 57 L 97/51 L 97 11/28/19 03:00 60 16 103/53 L 97 11/28/19 01:31 96 11/27/19 23:00 99.1 F 65 17 129/73 93 L Date Exam was Performed: 11/28/19 Time Exam was Performed: 10:04 - Problem List Review Problem List Initiated/Reviewed/Updated: Yes - Plan Plan:: ASSESSMENT AND PLAN FRACTURE RIGHT PATELLA AND RIGHT ANKLE WITH DISLOCATION -Orthopedic management per Dr. Schultz. 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 -short term memory loss -left foot drop- has AFO- doesn't always wear AFO -fall risk Maintenance issues - - DVT prophylaxis - SCD surgery planned in am. - GI prophylaxis -PPI Protonix 40 mg daily - Nutrition -regular diet then NPO after midnight -sleep- Melatonin 6 mg at bedtime - Martinez catheter -not indicated CODE STATUS -full code Admission justification -this patient will be admitted for inpatient services and is medically appropriate meeting medical necessity for inpatient admission as outlined in my documentation. I reasonably expect the patient will require inpatient services that span a period time over 2 midnights. I reasonably expect this patient to be discharged or transferred within 96 hours after admission to the [facility]. Disposition -anticipate discharge to longterm for restorative physical therapy and Occupational Therapy Primary care physician -Dr. Collado Hospitalist- Dr. Kaleb M.D. - Mortality Measure Prognosis:: Good
[2019-11-28] MEDS: Acetaminophen/HYDROcodone 325-5 MG Tab PO PRN (13:20)
--- NOTE | 2019-11-28 16:33 | PCM.SURGPN ---
- General Info Date of Service: 11/28/19 Date of Surgery/Procedure: 11/27/19 POD#: 1 Functional Status: Reports: Pain Controlled, Tolerating Diet, Urinating - Review of Systems General: Reports: No Symptoms HEENT: Reports: No Symptoms Pulmonary: Reports: No Symptoms Cardiovascular: Reports: No Symptoms Gastrointestinal: Reports: No Symptoms Genitourinary: Reports: No Symptoms Musculoskeletal: Reports: Leg Pain Skin: Reports: No Symptoms Neurological: Reports: Pre-Existing Deficit (left foot drop) Psychiatric: Reports: No Symptoms - Patient Data Vitals - Most Recent: Last Vital Signs Temp 37.8 C 11/28/19 16:03 Pulse 68 11/28/19 16:03 Resp 16 11/28/19 16:03 BP 108/53 L 11/28/19 16:03 Pulse Ox 98 11/28/19 16:03 Weight - Most Recent: 77.111 kg I&O - Last 24 Hours: Intake & Output 11/28/19 11/28/19 11/28/19 06:59 14:59 22:59 Intake Total 1660 500 Output Total 300 1100 Balance 1360 -600 Med Orders - Current: Current Medications Acetaminophen (Tylenol) 650 mg PO Q4H PRN PRN Reason: Pain (Mild 1-3)/fever Last Admin: 11/28/19 05:56 Dose: 650 mg Documented by: Hydrocodone Bitart/Acetaminophen ([place] 325-5 Mg) 2 tab PO Q4H PRN PRN Reason: Pain (mild 1-3) Last Admin: 11/28/19 13:20 Dose: 2 tab Documented by: Aspirin (Ecotrin) 325 mg PO BID [facility] Last Admin: 11/28/19 08:53 Dose: 325 mg Documented by: Atorvastatin Calcium (Lipitor) 20 mg PO BEDTIME [facility] Last Admin: 11/27/19 21:06 Dose: 20 mg Documented by: Bisacodyl (Dulcolax) 5 mg PO DAILY PRN PRN Reason: Constipation Docusate Sodium (Colace) 100 mg PO BID PRN PRN Reason: Constipation Last Admin: 11/27/19 21:09 Dose: 100 mg Documented by: Lorazepam (Ativan) 1 mg IV Q6H PRN PRN Reason: Nausea/Vomiting Melatonin (Melatonin) 6 mg PO BEDTIME [facility] Last Admin: 06/24/20 21:06 Dose: 6 mg Documented by: Morphine Sulfate (Morphine) 2 mg IVPUSH Q1H PRN PRN Reason: Breakthrough Pain Last Admin: 11/27/19 19:45 Dose: 2 mg Documented by: Ondansetron HCl (Zofran Odt) 4 mg PO Q6H PRN PRN Reason: Nausea able to take PO Ondansetron HCl (Zofran) 4 mg IV Q4H PRN PRN Reason: Nausea/Vomiting Oxycodone HCl (Oxycodone) 5 mg PO Q4H PRN PRN Reason: Pain (moderate 4-6) Last Admin: 11/27/19 17:48 Dose: 5 mg Documented by: Pantoprazole Sodium (Protonix Iv) 40 mg IV BEDTIME [facility] Last Admin: 11/27/19 21:05 Dose: 40 mg Documented by: Discontinued Medications Bupivacaine HCl (Marcaine 0.5%) Confirm Administered Dose 30 ml .ROUTE .STK-MED ONE Stop: 11/27/19 09:25 Diphtheria/Tetanus/Acell Pertussis (Adacel) 0.5 ml IM .ONCE ONE Stop: 11/26/19 19:23 Last Admin: 11/26/19 21:44 Dose: 0.5 ml Documented by: Fentanyl (Sublimaze) Confirm Administered Dose 100 mcg .ROUTE .STK-MED ONE Stop: 11/27/19 09:26 Sodium Chloride (Normal Saline) 1,000 mls @ 125 mls/hr IV ASDIRECTED [facility] Last Admin: 11/28/19 09:29 Dose: 125 mls/hr Documented by: Cefazolin Sodium/Dextrose 2 gm (/ Premix) 50 mls @ 100 mls/hr IV ONETIME ONE Stop: 11/27/19 10:29 Last Admin: 11/27/19 10:20 Dose: 100 mls/hr Documented by: Lactated Ringer's (Ringers, Lactated) 500 mls @ 999 mls/hr IV .BOLUS ONE Stop: 11/27/19 10:15 Last Admin: 11/27/19 09:30 Dose: 999 mls/hr Documented by: Lactated Ringer's (Ringers, Lactated) Confirm Administered Dose 1,000 mls @ as directed .ROUTE .STK-MED ONE Stop: 11/27/19 11:38 Cefazolin Sodium/Dextrose 1 gm (/ Premix) 50 mls @ 100 mls/hr IV Q8H [facility] Stop: 11/28/19 02:29 Last Admin: 11/28/19 01:27 Dose: 100 mls/hr Documented by: Midazolam HCl (Versed 1 Mg/Ml) Confirm Administered Dose 2 mg .ROUTE .STK-MED ONE Stop: 11/27/19 09:26 Morphine Sulfate (Morphine) 2 mg IVPUSH Q2H PRN PRN Reason: Pain (severe 7-10) Oxycodone HCl (Oxycodone) 10 mg PO Q4H PRN PRN Reason: Pain (severe 7-10) Last Admin: 11/28/19 05:56 Dose: 10 mg Documented by: Pantoprazole Sodium (Protonix Iv) 40 mg IV DAILY [facility] Last Admin: 11/26/19 22:20 Dose: 40 mg Documented by: Propofol (Diprivan 20 Ml) Confirm Administered Dose 200 mg .ROUTE .STK-MED ONE Stop: 11/27/19 09:26 Propofol (Diprivan 20 Ml) Confirm Administered Dose 200 mg .ROUTE .STK-MED ONE Stop: 11/27/19 11:27 - Exam Wound/Incisions: Dressing Dry and Intact, No Drainage General: Alert, Oriented Skin: Warm, Dry Neurological: No New Focal Deficit Psy/Mental Status: Alert, Normal Affect, Normal Mood Sepsis Event Note - Evaluation Sepsis Screening Result: No Definite Risk - Focused Exam Vital Signs: Vital Signs Temp Temp Pulse Resp BP Pulse Ox 11/28/19 16:03 37.8 C 68 16 108/53 L 98 11/28/19 12:42 67 16 110/42 L 100 11/28/19 09:03 37.4 C 11/28/19 07:28 96 11/28/19 07:00 57 L 97/51 L 97 Date Exam was Performed: 11/28/19 Time Exam was Performed: 16:28 - Problem List & Annotations (1) Closed fracture of ankle SNOMED Code(s): 95380425 Code(s): S82.899A - OTH FRACTURE OF UNSP LOWER LEG, INIT FOR CLOS FX Status: Acute Priority: High Current Visit: Yes (2) Fracture of patella SNOMED Code(s): 34688099 Code(s): S82.009A - UNSP FRACTURE OF UNSP PATELLA, INIT FOR CLOS FX Status: Acute Priority: High Current Visit: Yes (3) Status post open reduction and internal fixation (ORIF) of fracture SNOMED Code(s): 020234404 Code(s): Z98.890 - OTHER SPECIFIED POSTPROCEDURAL STATES; Z87.81 - PERSONAL HISTORY OF (HEALED) TRAUMATIC FRACTURE Status: Acute Current Visit: Yes Annotation/Comment:: right fibula with repair of deltoid ligament, fixation of patella fracture - Problem List Review Problem List Initiated/Reviewed/Updated: No - My Orders Last 24 Hours: Active Orders 24 hr Category Date Time Status Regular Diet [DIET] Diet 11/27/19 Dinner Active [id number] SARS-COV-2 RNA Stat Lab 11/28/19 11:21 Ordered Aspirin [Ecotrin] Med 11/27/19 21:00 Active 325 mg PO BID Pantoprazole [ProTONIX IV] Med 11/27/19 21:00 Active 40 mg IV BEDTIME Medication Orders Acetaminophen (Tylenol) 650 mg PO Q4H PRN PRN Reason: Pain (Mild 1-3)/fever Last Admin: 11/28/19 05:56 Dose: 650 mg Documented by: Admin: 11/27/19 22:45 Dose: 650 mg Documented by: Admin: 11/27/19 17:47 Dose: 650 mg Documented by: LUCHO Hydrocodone Bitart/Acetaminophen ([place] 325-5 Mg) 2 tab PO Q4H PRN PRN Reason: Pain (mild 1-3) Last Admin: 11/28/19 13:20 Dose: 2 tab Documented by: ROBERTO CARLOS Admin: 11/27/19 14:03 Dose: 2 tab Documented by: LUCHO Aspirin (Ecotrin) 325 mg PO BID [facility] Last Admin: 11/28/19 08:53 Dose: 325 mg Documented by: ROBERTO CARLOS Admin: 11/27/19 21:06 Dose: 325 mg Documented by: EMILIA Atorvastatin Calcium (Lipitor) 20 mg PO BEDTIME [facility] Last Admin: 11/27/19 21:06 Dose: 20 mg Documented by: Admin: 11/26/19 21:41 Dose: 20 mg Documented by: EMILIA Bisacodyl (Dulcolax) 5 mg PO DAILY PRN PRN Reason: Constipation Docusate Sodium (Colace) 100 mg PO BID PRN PRN Reason: Constipation Last Admin: 11/27/19 21:09 Dose: 100 mg Documented by: Admin: 11/26/19 21:41 Dose: 100 mg Documented by: EMILIA Lorazepam (Ativan) 1 mg IV Q6H PRN PRN Reason: Nausea/Vomiting Melatonin (Melatonin) 6 mg PO BEDTIME [facility] Last Admin: 11/27/19 21:06 Dose: 6 mg Documented by: Admin: 11/27/19 00:56 Dose: Not Given Documented by: EMILIA Morphine Sulfate (Morphine) 2 mg IVPUSH Q1H PRN PRN Reason: Breakthrough Pain Last Admin: 11/27/19 19:45 Dose: 2 mg Documented by: EMILIA Ondansetron HCl (Zofran Odt) 4 mg PO Q6H PRN PRN Reason: Nausea able to take PO Ondansetron HCl (Zofran) 4 mg IV Q4H PRN PRN Reason: Nausea/Vomiting Oxycodone HCl (Oxycodone) 5 mg PO Q4H PRN PRN Reason: Pain (moderate 4-6) Last Admin: 11/27/19 17:48 Dose: 5 mg Documented by: LUCHO Pantoprazole Sodium (Protonix Iv) 40 mg IV BEDTIME [facility] Last Admin: 11/27/19 21:05 Dose: 40 mg Documented by: EMILIA - Assessment Assessment (Free Text/Narrative):: Doing very well POD #1 ORIF right ankle and patella. Pain fairly well controlled. Mobility limited due to two joints being injured on right and footdrop on left. - Plan Plan (Free Text/Narrative):: OK to be up WBAT on right with brace. Arrangements being made for SNF.
[2019-11-28] MEDS: atorvaSTATin 20 MG Tab PO SCH (22:02)
[2019-11-28] MEDS: Docusate Sodium 100 MG Cap PO PRN (22:02)
[2019-11-28] MEDS: Pantoprazole 40 MG Vial IV SCH ×2 (22:03→22:12)
[2019-11-28] MEDS: Melatonin 3 MG Tab PO SCH (22:03)
[2019-11-29] MEDS: Acetaminophen/HYDROcodone 325-5 MG Tab PO PRN ×2 (02:08→12:01)
[2019-11-29] MEDS: Aspirin 325 MG Tab.EC PO SCH (09:37)
--- NOTE | 2019-11-29 10:22 | PCM.DCSUM1 ---
Discharge Summary - Hospital Course HPI Initial Comments: 74 year old female sustained a fall at home resulting in a right ankle fracture with subluxation and displaced right patella fracture. Admitted from ED for ORIF of both fractures. She also has a history of left foot drop due to previous hip surgery. Diagnosis: Stroke: No Modified Robeson Scale: No Symptoms at All Modified Mook Scale Score: 0 - Discharge Data Discharge Date: 11/29/19 Discharge Disposition: DC/Tfer to SNF 03 Condition: Stable - Referral to Home Health Date of Face to Face Encounter: 11/29/19 Primary Care Physician: Cabrera Collado MD - Discharge Diagnosis/Problem(s) (1) Closed fracture of ankle SNOMED Code(s): 35257099 ICD Code: S82.899A - OTH FRACTURE OF UNSP LOWER LEG, INIT FOR CLOS FX Status: Acute Priority: High Current Visit: Yes (2) Fracture of patella SNOMED Code(s): 60332379 ICD Code: S82.009A - UNSP FRACTURE OF UNSP PATELLA, INIT FOR CLOS FX Status: Acute Priority: High Current Visit: Yes (3) Status post open reduction and internal fixation (ORIF) of fracture SNOMED Code(s): 229784698 ICD Code: Z98.890 - OTHER SPECIFIED POSTPROCEDURAL STATES; Z87.81 - PERSONAL HISTORY OF (HEALED) TRAUMATIC FRACTURE Status: Acute Current Visit: Yes Problem Details: right fibula with repair of deltoid ligament, fixation of patella fracture - Patient Summary/Data Operative Procedure(s) Performed: ORIF right distal fibula and repair of deltoid ligament, and ORIF of right patella fracture with Fiberwire suture Consults: Consultations 11/26/19 20:20 Consult to Physician [CONS] Routine Consulting Provider: Wilfred Schultz Call Completed to Consulting Physician: Yes: ER called Dr. Schultz Reason for Consult: right ankle fracture Person Notified: Dr. Schultz Date Notified: 11/26/19 OT Evaluation and Treatment [CONS] Routine Please Evaluate and Treat. OT Reason for Consult: Discharge Planning Special Instructions: will have ORIF in am 11/26/2019, ADLs and adaptive devices This query below is only for informational purposes and is not editable. PT Evaluation and Treatment [CONS] Routine Please Evaluate and Treat. PT Reason for Consult: Post op Ortho Surgery Special Instructions: ORIF rigth ankle and patella 11/26/2019, WBAT with knee immobilzer on leg This query below is only for informational purposes and is not editable. 11/27/19 12:40 Consult to Case Management/Rail Transit Operator [CONS] Routine Comment: Physician Instructions: Service(s) to be Consulted: Case Management Reason for Consult: Plan for Discharge Hospital Course: Admitted through the ED and evaluated by Medicine, no contraindications for surgery. She tolerated the surgery well and had no complications post op. Worked with PT POD #1 and was able to be up with walker, WBAT on right with knee immobilizer. Mobility limited by the two fractures on the two fractures on the right and pre-existing footdrop on the left. Arrangements were made for transfer to SNF for additional PT. Splint of right lower leg is dry and intact. Dressing changed on right knee, no complications. Hinged knee brace applied and lock in extension for ambulation. She may unlock and and allow flexion to 40 degrees for ease of getting in and out of cars etc. Follow up with Ortho in 7-10 days. - Patient Instructions Diet: Usual Diet as Tolerated Activity: Apply Ice, As Tolerated Activity, Other: WBAT of right with knee brace or immobilzer on Driving: Do Not Drive Showering/Bathing: Shower in AM Showering/Bathing, Other: Keep lower leg splint clean and dry, cover with plastic and seal for shower Wound/Incision Care: Change Dressing Daily (right knee) Notify Provider of: Fever, Increased Pain, Swelling and Redness, Drainage - Discharge Plan *PRESCRIPTION DRUG MONITORING PROGRAM REVIEWED*: Not Applicable *COPY OF PRESCRIPTION DRUG MONITORING REPORT IN PATIENT RUPESH: Not Applicable Prescriptions/Med Rec: oxyCODONE HCl/Acetaminophen [Percocet 5-325 mg Tablet] 1 - 2 each PO Q4HR PRN #50 tablet PRN Reason: Pain Home Medications: Home Meds Calcium Carbonate [Calcium] 500 tab PO TID 05/05/15 [History] Multivitamin [Multivitamins] 1 tab PO DAILY 05/05/15 [History] Aspirin [Low Dose Aspirin EC] 81 mg PO DAILY 05/17/18 [History] atorvaSTATin Calcium [Lipitor] 20 mg PO BEDTIME 05/17/18 [History] oxyCODONE HCl/Acetaminophen [Percocet 5-325 mg Tablet] 1 - 2 each PO Q4HR PRN #50 tablet 11/29/19 [Rx] Oxygen Therapy Mode: Room Air Patient Handouts: Muscle Strain, [id number], How to Use a Knee Immobilizer, [id number], Pain Medicine Instructions, [id number]-[id number], How to Use a Knee Brace, Patellar Fracture, Adult Referrals: Wilfred Schultz MD [Physician] - 12/05/19 3:30 pm ([facility] at ER desk for appointment) Cabrera Collado MD [Primary Care Provider] - - Discharge Summary/Plan Comment DC Time >30 min.: Yes (Dressing change and application of knee brace) - General Info Functional Status: Reports: Pain Controlled, Tolerating Diet, Ambulating, Urinating - Review of Systems General: Reports: No Symptoms HEENT: Reports: No Symptoms Pulmonary: Reports: No Symptoms Cardiovascular: Reports: No Symptoms Gastrointestinal: Reports: No Symptoms Genitourinary: Reports: No Symptoms Musculoskeletal: Reports: Leg Pain Skin: Reports: No Symptoms Neurological: Reports: No Symptoms, Pre-Existing Deficit (left foot drop) Psychiatric: Reports: No Symptoms - Patient Data Vitals - Most Recent: Last Vital Signs Temp 36.9 C 11/29/19 07:32 Pulse 62 11/29/19 07:32 Resp 16 11/29/19 07:32 BP 95/53 L 11/29/19 07:32 Pulse Ox 96 11/29/19 07:32 Weight - Most Recent: 77.111 kg I&O - Last 24 hours: Intake & Output 11/28/19 11/29/19 11/29/19 22:59 06:59 14:59 Intake Total 920 250 480 Balance 920 250 480 Lab Results - Last 24 hrs: Laboratory Results - last 24 hr 11/28/19 Range/Units 11:21 COVID-19 PCR Negative (NEGATIVE) Med Orders - Current: Current Medications Acetaminophen (Tylenol) 650 mg PO Q4H PRN PRN Reason: Pain (Mild 1-3)/fever Last Admin: 11/28/19 05:56 Dose: 650 mg Documented by: Hydrocodone Bitart/Acetaminophen (Maynard 325-5 Mg) 2 tab PO Q4H PRN PRN Reason: Pain (mild 1-3) Last Admin: 11/29/19 02:08 Dose: 2 tab Documented by: Aspirin (Ecotrin) 325 mg PO BID [facility] Last Admin: 11/29/19 09:37 Dose: 325 mg Documented by: Atorvastatin Calcium (Lipitor) 20 mg PO BEDTIME [facility] Last Admin: 11/28/19 22:02 Dose: 20 mg Documented by: Bisacodyl (Dulcolax) 5 mg PO DAILY PRN PRN Reason: Constipation Docusate Sodium (Colace) 100 mg PO BID PRN PRN Reason: Constipation Last Admin: 11/28/19 22:02 Dose: 100 mg Documented by: Lorazepam (Ativan) 1 mg IV Q6H PRN PRN Reason: Nausea/Vomiting Melatonin (Melatonin) 6 mg PO BEDTIME [facility] Last Admin: 11/28/19 22:03 Dose: 6 mg Documented by: Morphine Sulfate (Morphine) 2 mg IVPUSH Q1H PRN PRN Reason: Breakthrough Pain Last Admin: 11/27/19 19:45 Dose: 2 mg Documented by: Ondansetron HCl (Zofran Odt) 4 mg PO Q6H PRN PRN Reason: Nausea able to take PO Ondansetron HCl (Zofran) 4 mg IV Q4H PRN PRN Reason: Nausea/Vomiting Oxycodone HCl (Oxycodone) 5 mg PO Q4H PRN PRN Reason: Pain (moderate 4-6) Last Admin: 11/27/19 17:48 Dose: 5 mg Documented by: Pantoprazole Sodium (Protonix) 40 mg PO BEDTIME [facility] Discontinued Medications Bupivacaine HCl (Marcaine 0.5%) Confirm Administered Dose 30 ml .ROUTE .STK-MED ONE Stop: 11/27/19 09:25 Diphtheria/Tetanus/Acell Pertussis (Adacel) 0.5 ml IM .ONCE ONE Stop: 11/26/19 19:23 Last Admin: 11/26/19 21:44 Dose: 0.5 ml Documented by: Fentanyl (Sublimaze) Confirm Administered Dose 100 mcg .ROUTE .STK-MED ONE Stop: 11/27/19 09:26 Sodium Chloride (Normal Saline) 1,000 mls @ 125 mls/hr IV ASDIRECTED [facility] Last Admin: 11/28/19 09:29 Dose: 125 mls/hr Documented by: Cefazolin Sodium/Dextrose 2 gm (/ Premix) 50 mls @ 100 mls/hr IV ONETIME ONE Stop: 11/27/19 10:29 Last Admin: 11/27/19 10:20 Dose: 100 mls/hr Documented by: Lactated Ringer's (Ringers, Lactated) 500 mls @ 999 mls/hr IV .BOLUS ONE Stop: 11/27/19 10:15 Last Admin: 11/27/19 09:30 Dose: 999 mls/hr Documented by: Lactated Ringer's (Ringers, Lactated) Confirm Administered Dose 1,000 mls @ as directed .ROUTE .STK-MED ONE Stop: 11/27/19 11:38 Cefazolin Sodium/Dextrose 1 gm (/ Premix) 50 mls @ 100 mls/hr IV Q8H [facility] Stop: 11/28/19 02:29 Last Admin: 11/28/19 01:27 Dose: 100 mls/hr Documented by: Midazolam HCl (Versed 1 Mg/Ml) Confirm Administered Dose 2 mg .ROUTE .STK-MED ONE Stop: 11/27/19 09:26 Morphine Sulfate (Morphine) 2 mg IVPUSH Q2H PRN PRN Reason: Pain (severe 7-10) Oxycodone HCl (Oxycodone) 10 mg PO Q4H PRN PRN Reason: Pain (severe 7-10) Last Admin: 11/28/19 05:56 Dose: 10 mg Documented by: Pantoprazole Sodium (Protonix Iv) 40 mg IV DAILY [facility] Last Admin: 11/26/19 22:20 Dose: 40 mg Documented by: Pantoprazole Sodium (Protonix Iv) 40 mg IV BEDTIME [facility] Last Admin: 11/28/19 22:12 Dose: Not Given Documented by: Propofol (Diprivan 20 Ml) Confirm Administered Dose 200 mg .ROUTE .STK-MED ONE Stop: 11/27/19 09:26 Propofol (Diprivan 20 Ml) Confirm Administered Dose 200 mg .ROUTE .STK-MED ONE Stop: 11/27/19 11:27 - Exam General: Reports: Alert, Oriented HEENT: Reports: Pupils Equal, Pupils Reactive, EOMI, Mucous Membr. Moist/[place] Neck: Reports: Supple Lungs: Reports: Clear to Auscultation, Normal Respiratory Effort Cardiovascular: Reports: Regular Rate, Regular Rhythm GI/Abdominal Exam: Normal Bowel Sounds, Soft, Non-Tender, No Distention (Female) Exam: Deferred Rectal (Female) Exam: Deferred Back Exam: Reports: Normal Inspection Extremities: Joint Swelling, Limited Range of Motion Skin: Reports: Warm, Dry Wound/Incisions: Reports: Dressing Dry and Intact Neurological: Reports: No New Focal Deficit Psy/Mental Status: Reports: Alert, Normal Affect, Normal Mood
[2019-11-29 10:51] VITALS: BP 97/43; PULSE 60
--- NOTE | 2019-11-29 19:10 | OR ---
DATE OF PROCEDURE: 11/27/2019 SURGEON: Wilfred Schultz MD PREOPERATIVE DIAGNOSES: 1. Displaced distal fibular fracture with ankle subluxation and tear of deltoid ligament. 2. Displaced transverse patella fracture, right knee. POSTOPERATIVE DIAGNOSES: 1. Displaced right distal fibular fracture with tear of deltoid ligament. 2. Displaced mildly comminuted right patella fracture. PROCEDURES: 1. Open reduction and internal fixation of right fibula and repair of deltoid ligament, right ankle. 2. Open reduction and internal fixation of right patella using FiberWire suture. ANESTHESIA: Spinal. INDICATIONS: Ms. Nielson is a 74-year-old female who sustained a fall at her home onto her right ankle and knee resulting in fracture of her distal fibula with lateral subluxation and transverse fracture of the inferior pole of the patella with some comminution proximally. She was admitted through the emergency room, underwent preoperative evaluation by the hospitalist, and was taken to the operating room today, 11/26, for fixation of fractures. Risks, benefits, potential complications of the procedure were discussed. DESCRIPTION OF PROCEDURE: After adequate anesthesia was obtained, the patient was placed supine with a tourniquet about the right upper thigh. Right leg was prepped and draped in a sterile fashion. Leg was exsanguinated and tourniquet inflated to 300 mmHg pressure. Procedure was begun on the right ankle where a longitudinal incision was made over the distal fibula and carried down through the subcutaneous tissues to the subcutaneous border of the fibula. The ankle was reduced and the fracture was held in position with a tenaculum clamp. A Synthes distal fibular plate was then secured using locking screws distally and cortical screws proximally in compression. Position was confirmed using fluoroscopy. Some mild medial widening of the joint space was still present and a curvilinear incision was made over the medial malleolus. There was a small area of compromised skin over the medial malleolus, which was avoided. Dissection carried down distal to the malleolus and the deltoid ligament was found to be ruptured with a portion of it flipped into the joint. This was removed and the deltoid was then repaired directly using #1 Vicryl. Skin was closed with 2-0 Vicryl and a running 3-0 Monocryl. Lateral incision was closed in a similar fashion after irrigation. Sterile dressings were then applied to the ankle. Attention was then turned to the knee. A longitudinal incision was made over the patella and carried down to the subcutaneous tissues. Fracture hematoma was evacuated and the knee was irrigated. The fracture was mildly comminuted in the main body of the patella, but no displacement. The distal pole of the patella was displaced and the distal fragment was fairly thin and comprised primarily of the anterior cortex of the inferior pole. It was felt that this fragment was not ideal for screw fixation and due to the comminution of the proximal body it would be difficult to obtain good purchase proximally. A decision was made to proceed with fixation of this in a manner similar to a patellar tendon rupture. A drill hole was made through the central portion of the distal fragment and a #2 FiberWire suture was then placed through this and then down into the tendon in a Krackow stitch fashion and brought back up medially. A 2nd suture was placed in a similar fashion through the central portion and then a Krackow stitch laterally back up through the tendon. A drill hole was then made up through the body of patella and out the superior aspect. A straight Alexander needle was then used to pass two of the sutures from the central portion of the tendon up through the patella. The suture from the lateral portion of the tendon was brought up through a separate drill hole laterally in the patella and this procedure was repeated for the remaining medial suture. The leg was in full extension and the fracture was reduced with a large tenaculum clamp and the sutures were then tied down over the superior pole of the patella, pulling the inferior fragment into position. An additional FiberWire suture was then placed circumferentially around the patella, beginning medially, weaving this through the quadriceps tendon down through the lateral capsule and retinaculum and then through the patellar tendon along the inferior pole fragment and then back up medially. This was then tied into the medial capsule. Additional sutures were then placed in a figure- of-eight fashion through the patellar tendon up over the body of the patella and into the quadriceps tendon, one slightly medial and one slightly lateral, creating a tension band type compression over the distal fragment. Knee was irrigated. Medial and lateral retinaculum were then closed where they had ruptured with a #1 Vicryl. The knee was then flexed to 90 degrees without evidence of separation of the fracture. Knee was irrigated and the skin was then closed with 2-0 Vicryl and a running 3-0 Monocryl and Steri-Strips were applied. Sterile cast padding was placed on the ankle and a plaster AO splint was applied with the foot in neutral position. A sterile dressing was placed over the knee and a knee immobilizer was then placed. The patient tolerated the procedure very well. There were no complications. She was taken from the operating room in stable condition. Wilfred Schultz MD /[id number]
[2019-11-29] MEDS ORDERED: Pantoprazole 40 MG Tab.CR PO SCH (21:00)
== END 2019-11-29 12:40 | DRG 493 ==
LOC: JP.ED 14:18 → JP.ICU 19:29 → JP.MS 11-28 13:28
PROVIDERS: ADMIT Hospitalist; ATTEND Specialist
PROC: 0QSJ04Z Reposition Right Fibula with Internal Fixation Device, Open Approach (ICD-10-PCS; principal; 2019-11-27)
PROC: 0QSD04Z Reposition Right Patella with Internal Fixation Device, Open Approach (ICD-10-PCS; 2019-11-27)
PROC: 0MQQ0ZZ Repair Right Ankle Bursa and Ligament, Open Approach (ICD-10-PCS; 2019-11-27)
DX: S82.831A Other fracture of upper and lower end of right fibula, initial encounter for closed fracture (principal); S82.899A Other fracture of unspecified lower leg, initial encounter for closed fracture; S82.009A Unspecified fracture of unspecified patella, initial encounter for closed fracture; S52.502A Unspecified fracture of the lower end of left radius, initial encounter for closed fracture; S82.001A Unspecified fracture of right patella, initial encounter for closed fracture; W19.XXXA Unspecified fall, initial encounter; H54.7 Unspecified visual loss; E78.00 Pure hypercholesterolemia, unspecified; Z96.643 Presence of artificial hip joint, bilateral; E66.9 Obesity, unspecified; Z98.49 Cataract extraction status, unspecified eye; Y92.009 Unspecified place in unspecified non-institutional (private) residence as the place of occurrence of the external cause; Z86.73 Personal history of transient ischemic attack (TIA), and cerebral infarction without residual deficits; Z79.82 Long term (current) use of aspirin; Z79.899 Other long term (current) drug therapy; Z68.29 Body mass index [BMI] 29.0-29.9, adult
CPT/HCPCS: 29505; 36415; 735622650; 73562-50; 73610-26-RT; 73610-RT; 73630-26-RT; 73630-RT; 76000; 80053; 81001; 83735; 85025; 85610; 90471; 90715; 94762; 97116-GP; 97161-GP; 97165-GO; 97530-GP; 99284; 99284-25; A9270-GY; C1713; C9113; J0690; J2250; J2270; J2704; J3010; J3490; J7030; J7120; U0002

== ENCOUNTER 2024-08-16 08:50 | Inpatient (IN) | payer MEDICARE ==
[2024-08-16] MEDS: Sodium Chloride 0.9% 1,000 ML IV ONE (09:20)
[2024-08-16 09:21] LABS: BASOPHILS ABSOLUTE AUTO 0.04 K/uL (0.00-0.10); BASOPHILS PERCENT AUTO 0.5 % (0.1-1.3); EOSINOPHILS ABSOLUTE AUTO 0.13 K/uL (0.00-0.40); EOSINOPHILS PERCENT AUTO 1.6 % (0.0-5.4); HEMATOCRIT 40.6 % (34.3-46.0); HEMOGLOBIN 13.7 g/dL (11.2-15.5); IMMATURE GRAN ABSOLUTE AUTO 0.03 K/uL (0.00-0.23); IMMATURE GRAN PERCENT AUTO 0.4 % (0.0-0.7); LYMPHOCYTES ABSOLUTE AUTO 0.99 K/uL (0.8-3.3); LYMPHOCYTES PERCENT AUTO 11.9 % (11.4-47.7); MEAN CORPUSCULAR HEMOGLOBIN 29.8 pg (31.6-35.5); MEAN CORPUSCULAR HGB CONC 33.7 g/dL (31.6-35.5); MEAN CORPUSCULAR VOLUME 88.3 fL (81.4-99.0); MONOCYTES ABSOLUTE AUTO 0.66 K/uL (0.20-0.90); NEUTROPHILS ABSOLUTE AUTO 6.45 K/uL (1.0-7.6); NEUTROPHILS PERCENT AUTO 77.6 % (40.0-78.1); PLATELET COUNT,PLT 384 K/uL (130-375); WHITE BLOOD CELL COUNT,WBC 8.3 K/uL (3.2-11.0)
[2024-08-16 09:33] LABS: INR 1.1; PROTHROMBIN TIME 11.4 sec (9.2-10.6)
[2024-08-16 09:41] LABS: A/G RATIO 0.6 (1.2-2.2); ALANINE AMINOTRANSFERASE,ALT 197 U/L (12-78); ALBUMIN 2.3 g/dL (3.4-5.0); ALKALINE PHOSPHATASE 825 U/L (46-116); ASPARTATE AMNIOTRANSFERASE,AST 261 U/L (15-37); BILIRUBIN TOTAL 6.6 mg/dL (0.2-1.0); BLOOD UREA NITROGEN,BUN 10 mg/dL (7-18); CALCIUM 9.1 mg/dL (8.5-10.1); CARBON DIOXIDE,CO2 24 mmol/L (21-32); CHLORIDE,CL 104 mmol/L (100-108); CREATININE 0.6 mg/dL (0.6-1.0); EST CRCL DRUG DOSING (CG) 72.34 mL/min; ESTIMATED GFR 92 mL/min (>60); GLUCOSE RANDOM 111 mg/dL (74-106); PROTEIN TOTAL,TP 6.4 g/dL (6.4-8.2); SODIUM,NA 135 mmol/L (140-148)
[2024-08-16 09:45] LABS: LACTIC ACID 1.5 mmol/L (0.4-2.0)
[2024-08-16 09:46] LABS: APPEARANCE,URINE SLIGHTLY CLOUDY (CLEAR); BILIRUBIN,URINE LARGE (NEGATIVE); GLUCOSE,URINE 100 mg/dL (NEGATIVE); KETONES,URINE 15 mg/dL (NEGATIVE); LEUKOCYTE ESTERASE,URINE TRACE (NEGATIVE); NITRITE,URINE NEGATIVE (NEGATIVE); OCCULT BLOOD,URINE NEGATIVE (NEGATIVE); PROTEIN,URINE 30 mg/dL (NEGATIVE); UROBILINOGEN,URINE 0.2 EU/dL (0.2-1.0)
[2024-08-16 09:56] LABS: BACTERIA,URINE MODERATE; EPITHELIAL CELLS,URINE FEW; RBC,URINE 0-5 (0-5)
[2024-08-16 09:57] LABS: AMORPHOUS SEDIMENT,URINE FEW; MUCUS,URINE MODERATE
[2024-08-16 10:12] LABS: COLOR,URINE OTHER (YELLOW)
[2024-08-16] MEDS: Iopamidol 612 MG/ML 100 ML Bottle IV PRN (10:41)
[2024-08-16] MEDS: Sodium Chloride 0.9% 80 ML IV SCH (10:41)
[2024-08-16] MEDS ORDERED: Acetaminophen 325 MG Tab PO PRN (16:38)
[2024-08-16] MEDS ORDERED: LORazepam ORAL Concentrate 1MG/0.5ML U/D PO PRN (16:38)
[2024-08-16] MEDS ORDERED: Haloperidol 1 MG Tab PO PRN (16:38)
[2024-08-16] MEDS ORDERED: Polyethylene Glycol 3350 Powder 17 GM Packet PO PRN (16:38)
[2024-08-16] MEDS ORDERED: Morphine 10 MG/0.5 ML Oral Syringe PO PRN (16:38)
[2024-08-16] MEDS: Dexamethasone 2 MG Tab PO SCH (18:32)
[2024-08-16] MEDS: Melatonin 3 MG Tab PO SCH (21:41)
[2024-08-17] MEDS: Ondansetron 4 MG Tab.DIS PO PRN (21:29)
[2024-08-20 05:21] VITALS: BP 128/72; PULSE 77
== END 2024-08-20 12:05 | disposition home or self-care (01) | DRG 951 ==
LOC: JP.ED 08:50 → JP.MS 14:43
PROVIDERS: ADMIT Hospitalist; ATTEND Internal Medicine
DX: Z51.5 Encounter for palliative care (principal); G93.6 Cerebral edema; C79.31 Secondary malignant neoplasm of brain; C77.2 Secondary and unspecified malignant neoplasm of intra-abdominal lymph nodes; R45.1 Restlessness and agitation; C22.1 Intrahepatic bile duct carcinoma; R06.00 Dyspnea, unspecified; Z66 Do not resuscitate; H54.7 Unspecified visual loss; F41.9 Anxiety disorder, unspecified; E66.9 Obesity, unspecified; E78.00 Pure hypercholesterolemia, unspecified; Z96.643 Presence of artificial hip joint, bilateral; R63.4 Abnormal weight loss; Z79.82 Long term (current) use of aspirin; Z98.890 Other specified postprocedural states; Z98.49 Cataract extraction status, unspecified eye; Z86.73 Personal history of transient ischemic attack (TIA), and cerebral infarction without residual deficits; Z79.899 Other long term (current) drug therapy; Z68.22 Body mass index [BMI] 22.0-22.9, adult
CPT/HCPCS: 36415; 70450 ×2; 71260 ×2; 74177 ×2; 80053; 81001; 82140; 82550; 83605; 85025; 85610; J7030; Q9967; 99222; 99231; 99239; A9270-GY; J8540; Q0162